=== PATIENT | male | born 1990 | race Caucasian/White ===

== ENCOUNTER 2016-05-17 04:01 | Emergency (ER) | payer OTHER ==
[~2016-05-17] VITALS: Ht 177.8 cm; Wt 113.4 kg
--- NOTE | 2016-05-17 04:20 | ED GI/GU/ABDOMINAL COMPLAINT ---
History of Present Illness General Chief Complaint: Abdominal Pain/Flank Pain Stated Complaint: UPPER ABD PAIN Source: patient, family Exam Limitations: no limitations Vital Signs & Intake/Output Vital Signs & Intake/Output Vital Signs Date Time Temp Pulse Resp B/P Pulse O2 O2 Flow FiO2 Ox Delivery Rate 05/17 0637 98.5 72 18 111/61 98 Room Air 05/17 0414 Room Air 05/17 0408 96.4 59 18 120/72 98 Room Air Allergies Uncoded Allergies: Allergy Other N Med Allergies N Reconcile Medications No Known Home Medications Triage Note: PT TO TRIAGE C/O ABDOMINAL PAIN. PER PT THE NIGHT OF THE WENT TO DINNER AND FELL ASLEEP, WOKE UP WITH SHARP PAIN TO ABDOMEN. PER PT HE BELIEVED IT WAS GAS PAIN, PT TOOK GAS X WITH NO RELIEF. PT STATES HE WOKE UP TODAY, PAIN WAS STILL CONSTANT, PT WAS CONCERNED. PAIN IS SUBSTERNAL MID EPIGASTRIC, 5/10 CRAMPING PAIN. -N/V/D. PT STATES HE ATE A HEAVY GREASY MEAL AND THAT IS WHEN PAIN STARTED. Triage Nurses Notes Reviewed? yes HPI: Patient presents with an epigastric pressure feeling since yesterday. The pressure sensation has been constant for over the past 24 hours. He rates it as a 6 out of 10. There is no radiation. There are no aggravating or mitigating factors. Patient took 2 doses of Gas-X without relief. Unsure vomiting. There is no anorexia. Patient states he was able to eat breakfast lunch and dinner today without any difficulty. There is no shortness of breath. Internal or throat. There are no fevers or chills. Past History Travel History Traveled to [place] past 21 day No Medical History Any Pertinent Medical History? 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 No Review of Systems Review of Systems Constitutional: Reports: no symptoms. EENTM: Reports: no symptoms. Respiratory: Reports: no symptoms. Cardiovascular: Reports: no symptoms. GI: Reports: see HPI, abdominal pain. Genitourinary: Reports: no symptoms. Musculoskeletal: Reports: no symptoms. Skin: Reports: no symptoms. Neurological/Psychological: Reports: no symptoms. Hematologic/Endocrine: Reports: no symptoms. Immunologic/Allergic: Reports: no symptoms. All Other Systems: Reviewed and Negative Physical Exam Physical Exam General Appearance: well developed/nourished, alert, awake, mild distress Head: atraumatic, normal appearance Eyes: Bilateral: PERRL, EOMI, other (ANICTERIC). Ears, Nose, Throat, Mouth: hearing grossly normal, moist mucous membrane Neck: normal inspection, supple, full range of motion, normal alignment Respiratory: normal breath sounds, chest non-tender, no respiratory distress, lungs clear Cardiovascular: regular rate/rhythm, normal peripheral pulses Gastrointestinal: normal bowel sounds, soft, non-tender, no organomegaly, NO REBOUND OR GUARDING Back: normal inspection, normal range of motion Extremities: normal range of motion Neurologic/Psych: no motor/sensory deficits, awake, alert, oriented x 3, normal gait, normal mood/affect Skin: intact, normal color, warm/dry Core Measures ACS in differential dx? No Severe Sepsis Present: No Septic Shock Present: No Progress Differential Diagnosis: AMI, biliary colic, cholecystitis, gastritis, hepatitis, ischemic bowel, inflamm bowel dis, pancreatitis Plan of Care: Orders Procedure Date/time Status Telemetry/Grounds And Nursery Specialist 05/17 416 Active TROPONIN LEVEL 05/17 416 Complete LIPASE 05/17 416 Complete COMPREHENSIVE METABOLIC PANEL 05/17 416 Complete CBC WITHOUT DIFFERENTIAL 05/17 416 Complete AMYLASE 05/17 416 Complete EKG 05/17 416 Active Laboratory Tests 05/17/16436: CBC w Diff NO MAN DIFF REQ, RBC 4.66 L, MCV 85.4, MCH 28.6, RDW 14.0, MPV 7.1 L, Gran % 53.2, Lymphocytes % 35.8, Monocytes % 8.8, Eosinophils % 1.8, Basophils % 0.4, Absolute Granulocytes 4.1, Absolute Lymphocytes 2.8, Absolute Monocytes 0.7 H, Absolute Eosinophils 0.1, Absolute Basophils 0, PUBS MCHC 33.5 05/17/16416: Anion Gap 9, Estimated GFR > 60, BUN/Creatinine Ratio 12.2, Glucose 116 H, Calcium 9.3, Total Bilirubin 0.4, AST 23, ALT 34, Alkaline Phosphatase 68, Troponin I < 0.01, Total Protein 6.9, Albumin 4.1, Globulin 2.8, Albumin/ Globulin Ratio 1.5, Amylase 32, Lipase 141 Diagnostic Imaging: Viewed by Me: CT Scan. Discussed w/RAD: CT Scan. Radiology Impression: PATIENT: CLEOPATRA BRAGA PRESENT AGE: 26 PATIENT ACCOUNT NO: [id number] : 89 LOCATION: [facility] ORDERING PHYSICIAN: ERNIE ROUSE MD SERVICE DATE: 05/17/16 EXAM TYPE: CAT - CT ABD & PELVIS W IV CONTRAST EXAMINATION: CT ABDOMEN AND PELVIS WITH CONTRAST CLINICAL INFORMATION: Right upper quadrant pain COMPARISON: None. TECHNIQUE: Multidetector volumetric imaging was performed of the abdomen and pelvis before and after the IV administration of 95 mL of Optiray 320 intravenous contrast. Sagittal and coronal reformatted images were obtained on the technologist's workstation. DLP: 1170.89 mGy-cm. FINDINGS: LUNG BASES: The visualized lung bases are essentially clear. LIVER, GALLBLADDER, AND BILIARY TREE: The liver is normal in size, shape, and attenuation. No focal hepatic lesion or biliary ductal dilatation is present. The gallbladder is unremarkable with no evidence of radiopaque gallstones, gallbladder wall thickening, or obvious pericholecystic inflammatory changes. PANCREAS: Unremarkable. SPLEEN: Unremarkable. ADRENAL GLANDS: Unremarkable. KIDNEYS AND URETERS: The kidneys are normal in size, shape, and attenuation. No hydronephrosis, hydroureter, or calculi seen. No perinephric stranding. BLADDER: Unremarkable. GASTROINTESTINAL TRACT: The small and large bowel are unremarkable. The appendix is unremarkable. ABDOMINAL WALL: No significant hernia is appreciated. LYMPH NODES: Normal. VASCULAR: Unremarkable. PELVIC VISCERA: Unremarkable. OSSEOUS STRUCTURES: Unremarkable. IMPRESSION: No acute findings identified in the abdomen/pelvis. 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 <Electronically signed in Other Vendor System> SIGNED BY: FRANKIE MIMS MD 05/17/16 0657 Initial ED EKG: NSR, no ST T wave changes Rhythm Strip: normal sinus rhythm Comments: No relief from the GI cocktail. Patient continues to have the discomfort in the epigastric and right upper quadrant. There is no Spence sign. We'll obtain a CAT scan to evaluate the gallbladder. Departure Departure Disposition: HOME OR SELF CARE Condition: Stable Clinical Impression Primary Impression: Upper abdominal pain, unspecified Referrals: PATIENT HAS NO PRIMARY CARE DR Additional Instructions: return if symptoms worsen or for any concerns Departure Forms: Customer Survey General Discharge Information Prescriptions: Current Visit Scripts Hyoscyamine (Levsin) 1 TAB PO Q4 PRN ABDOMINAL PAIN #20 TAB
[2016-05-17 04:54] LABS: ABSOLUTE BASOPHIL COUNT 0 /CUMM (0.0-0.2); ABSOLUTE EOSINOPHIL COUNT 0.1 /CUMM (0.0-0.7); ABSOLUTE GRANULOCYTE CT 4.1 /CUMM (1.4-6.5); ABSOLUTE LYMPH COUNT 2.8 /CUMM (1.2-3.4); ABSOLUTE MONOCYTE COUNT 0.7 /CUMM (0.10-0.60); BASOPHIL % 0.4 % (0.0-2.0); EOSINOPHIL % 1.8 % (0-5); GRANULOCYTE % 53.2 % (42.2-75.2); HEMATOCRIT 39.8 % (42-52); MEAN CORPUSCULAR HGB 28.6 PG (27.0-31.0); MEAN CORPUSCULAR HGB CONC 33.5 G/DL (33.0-37.0); MEAN CORPUSCULAR VOLUME 85.4 FL (80.0-94.0); MEAN PLATELET VOLUME 7.1 FL (7.4-10.4); PLATELET COUNT 300 /CUMM (130-400); RED BLOOD CELL CT 4.66 /CUMM (4.70-6.10); WHITE BLOOD CELL COUNT 7.8 /CUMM (4.8-10.8)
[2016-05-17 06:37] VITALS: BP 111/61
--- NOTE | 2016-05-17 06:57 | CT SCAN REPORT ---
EXAMINATION: CT ABDOMEN AND PELVIS WITH CONTRAST CLINICAL INFORMATION: Right upper quadrant pain COMPARISON: None. TECHNIQUE: Multidetector volumetric imaging was performed of the abdomen and pelvis before and after the IV administration of 95 mL of Optiray 320 intravenous contrast. Sagittal and coronal reformatted images were obtained on the technologist's workstation. DLP: 1170.89 mGy-cm. FINDINGS: LUNG BASES: The visualized lung bases are essentially clear. LIVER, GALLBLADDER, AND BILIARY TREE: The liver is normal in size, shape, and attenuation. No focal hepatic lesion or biliary ductal dilatation is present. The gallbladder is unremarkable with no evidence of radiopaque gallstones, gallbladder wall thickening, or obvious pericholecystic inflammatory changes. PANCREAS: Unremarkable. SPLEEN: Unremarkable. ADRENAL GLANDS: Unremarkable. KIDNEYS AND URETERS: The kidneys are normal in size, shape, and attenuation. No hydronephrosis, hydroureter, or calculi seen. No perinephric stranding. BLADDER: Unremarkable. GASTROINTESTINAL TRACT: The small and large bowel are unremarkable. The appendix is unremarkable. ABDOMINAL WALL: No significant hernia is appreciated. LYMPH NODES: Normal. VASCULAR: Unremarkable. PELVIC VISCERA: Unremarkable. OSSEOUS STRUCTURES: Unremarkable. IMPRESSION: No acute findings identified in the abdomen/pelvis.
[2016-05-17] MEDS ORDERED: LEVSIN0.125 M1 PO (07:17)
== END 2016-05-17 07:24 ==
LOC: ERH 04:01
PROVIDERS: Emergency Medicine
DX: R10.13 Epigastric pain (principal)
CPT/HCPCS: 74177; 93005; 93010